=== PATIENT | female | born 1950 | race Caucasian/White ===

== ENCOUNTER → 2016-10-21 | Outpatient (CLI) | payer OTHER ==
[~2016-10-21] MED LIST: GLUCOPHAGE500 MG; ZIAC 10/6.25 MG10 MG
--- NOTE | ~2016-10-21 | S ---
[facility] [place] [address] SURGICAL PATH RPT PROCEDURE Name: JIMMIE CASTILLO Lakisha Room #: REG [facility].#: [id number] Admission: 10/21/16 Date of : 46 Discharge: Report #: [id number] Path Case #: [id number] PATHOLOGY REPORT COLLECTION DATE: 10/21/2016 RECEIVED DATE: 10/21/2016 SUBMITTING PHYS: Dr. Darshan Madden OTHER PHYS: Dr. Theodore Montoya SPECIMEN(S) RECEIVED: A.Right breast 300, 8 cm B.Right breast 300, 3 cm * * * * * * * * * * * * FINAL DIAGNOSIS: A. Breast, right breast 3:00, 8.0 cm, needle core biopsy: - INVASIVE MODERATELY DIFFERENTIATED DUCTAL ADENOCARCINOMA, MAYRA GRADE II, MEASURING 1.0 CM IN GREATEST DIMENSION IN A SINGLE CORE IN CONTIGUOUS LENGTH. B. Breast, right breast 3:00, 3.0 cm, needle core biopsy: - INVASIVE MODERATELY DIFFERENTIATED DUCTAL ADENOCARCINOMA, MAYRA GRADE II, MEASURING 5.0 MM IN CONTIGUOUS LENGTH IN A SINGLE CORE. - FOCAL DUCTAL CARCINOMA IN-SITU OF CRIBRIFORM TYPE AND INTERMEDIATE NUCLEAR GRADE PRESENT ADJACENT TO THE INVASIVE DUCTAL CARCINOMA. COMMENT: Specimen type: needle core biopsy; Tumor site: two sites, right breast 3:00, 8.0 cm, and right breast 3:00, 3.0 cm; Histologic type: invasive ductal carcinoma; Histologic grade: Mayra grade II; Tubules, nuclei and mitoses: 3, 2, and 1, respectively; LVSI: not identified; Microcalcifications: not identified; Markers: ER, UT, Ki-67, and HER-2/arline; Block: A1. Co-review: Dr. Trudy Lopes. Findings are telephoned to Ms Reveles, at our breast center at approximately 10:50 a.m., on 10/22/16. (IUV:csd; d/t: 10/22/2016) PATHOLOGIST: Ariane King M.D. REPORT ELECTRONICALLY SIGNED BY: Ariane King M.D. DATE/TIME: 10/22/2016 15:20 * * * * * * * * * * * * [address] [address] SURGICAL PATH RPT PROCEDURE Name: JIMMIE CASTILLO Room #: REG [facility]#: [id number] Admission: 10/21/16 Date of : 46 Discharge: Report #: [id number] Path Case #: [id number] GROSS PATHOLOGY: A. Received in formalin labeled "Jimmie Castillo, right breast 3:00 8 cm," are multiple needle cores of yellow-payne fibrofatty tissue measuring 2.5 x 1.8 x 0.5 cm in aggregate dimensions. The tissue is submitted in its entirety in cassette A1. The cold ischemic time is 5 minutes. The total formalin fixation time is 13 hours and 26 minutes. B. Received in formalin labeled "Jimmie Castillo, right breast 3:00 3 cm," are multiple needle cores of yellow-payne fibrofatty tissue measuring 1.8 x 1.2 x 0.4 cm in aggregate dimensions. The tissue is submitted in its entirety in cassette B1. The cold ischemic time is 5 minutes. The total formalin fixation time is 13 hours and 21 minutes. (CAA; 10/21/2016) CLINICAL HISTORY: Right breast mass 2 INITIAL CPT CODE(S): A; 12958, 30488(4) B; 46339 Professional services performed by [facility] at [address], [place] [address] Technical services performed by [facility] at [address] [place] [address], [address], [place] [address]. PROCEDURE REPORT (Order Date: 10/22/2016 00:00) INTERPRETATION: Special studies report received from [facility], [address] [place] [address], [address], [place], [address], on case [id number], labeled with their number [id number], dated 10/23/2016. Predictive/Prognostic Marker Analysis Specimen 1: Rt Breast Specimen ID#: [id number] B2 ER (Estrogen Receptor): Present/Positive Percent: 96.5% Intensity: Strong Analysis Type: Computer Assisted UT (Progesterone Receptor): Present/Positive Percent: 16.4% Intensity: Moderate Analysis Type: Computer Assisted HER2: Not Over-Expressed Score: 1+ Analysis Type: Computer Assisted KI67: Low Proliferation [address] [address] SURGICAL PATH RPT PROCEDURE Name: JIMMIE CASTILLO Room #: ARABELLA Daniels#: [id number] Admission: 10/21/16 Date of : 46 Discharge: Report #: [id number] Path Case #: [id number] Percent: 16.8% Analysis Type: Computer Assisted Fixation Information Type of Fixative: 10% Neutral Buffered Formalin Time to Fixation: Immediate Duration of Fixation: 27 hours 15 minutes at [facility] Validation Methodology The HER2 Receptor protein expression is analyzed using the [place] HER2 rabbit monoclonal antibody (clone [id number]). This assay is used for diagnostic determination of the HER2 protein over-expression in paraffin embedded, formalin fixed breast cancer tissue on the [place] Benchmark. The specimen is processed using a polymer detection system. The membrane staining of the tumor is determined either by manual score or image analysis. This antibody is intended for in vitro diagnostic use. The score is reported as per package insert; 0, 1+, 2+, and 3+. This test is used for clinical purposes. A rabbit monoclonal antibody (clone SP1) that recognized the Estrogen Receptor is used to perform immunohistochemistry on routinely fixed (formalin) paraffin embedded tissue on the [place] Benchmark. The specimen is processed using a polymer detection system. The percentage of stained tumor nuclei is determined either manually or by image analysis. This test is intended for in vitro diagnostic use. This test is used for clinical purposes. A rabbit monoclonal antibody (clone 1E2) that recognized the Progesterone Receptor is used to perform immunohistochemistry on routinely fixed (formalin) paraffin embedded tissue on the [place] Benchmark. The specimen is processed using a polymer detection system. The percentage of stained tumor nuclei is determined either manually or by image analysis. This test is intended for in vitro diagnostic use. This test is used for clinical purposes. A rabbit monoclonal antibody (clone 30-9) that recognized Ki67 is used to perform immunohistochemistry on routinely fixed (formalin) paraffin embedded tissue on the [place] Benchmark. The specimen is processed using a polymer detection system. The percentage of stained tumor nuclei is determined either manually or by image analysis. This test is intended for in vitro diagnostic use. This test is used for clinical purposes. Intended Use (when used as Prognostic/Predictive Markers): This antibody is intended for in vitro diagnostic (IVD) use. Estrogen Receptor (ER) (SP1) is a rabbit monoclonal antibody (IgG) that is intended for the qualitative detection of estrogen receptor (ER) antigen in sections of formalin-fixed, paraffin-embedded tissue. ER is a rabbit monoclonal antibody that recognizes human estrogen receptor alpha. This antibody is intended for in vitro diagnostic (IVD) use. Progesterone Receptor (UT) (1E2) is a rabbit monoclonal antibody [facility] [address] [place] [address] SURGICAL PATH RPT PROCEDURE Name: JIMMIE CASTILLO [id number] Admission: 10/21/16 Date of : 46 Discharge: Report #: [id number] Path Case #: [id number] (IgG) that is intended for the qualitative detection of progesterone receptor (UT) antigen in sections of formalin fixed, paraffin embedded tissue. UT is a rabbit monoclonal antibody that recognizes the A and B forms of the human progesterone receptor. This antibody is intended for in vitro diagnostic (IVD) use. HER2 (4B5) is a rabbit monoclonal antibody intended for the semi-quantitative detection of HER2 antigen in sections of formalin-fixed, paraffin embedded normal and neoplastic tissue. The HER2 protein is expressed as a level detectable by immunohistochemistry in up to 20 percent of adenocarcinomas from various sites. This antibody is intended for in vitro diagnostic (IVD) use. Ki-67 (30-9) is a rabbit monoclonal antibody (IgG) directed against C-terminal portion of Ki-67 antigen. Staining for Ki-67 can be used to aid in assessing the proliferative activity of normal and neoplastic tissue. Ki-67 is a nuclear protein expressed in proliferating cells. During the cell cycle, the Ki-67 antigen is present in the G1, S, G2 and M phase but is absent in the G0 (quiescent phase). Disclaimer [facility] is a business unit of [employer] a wholly-owned subsidiary of [employer]. Technical component performed by [facility] at [address] [place] [address] [address] [address], Leander Phillip MD Professional component performed by [facility] at [address] [place] [address] [address] [address], . Any image(s) that accompany this report is/are a retail sales representative image(s) only and should not be used to render a diagnosis. HER2 testing at [facility], [employer] is performed in compliance with the 2013 updated ASCO/CAP Clinical Practice Guidelines and Recommendations for HER2 testing in Breast Cancer. If the result is EQUIVOCAL (2+), it must be confirmed by an alternative assay such as FISH or Dual JOANIE. REF: Jeri CEDILLO, et al. Recommendations for human epidermal growth factor receptor 2 testing in breast cancer: [place] Society of Clinical Oncology/College of Dominican pathologists Clinical Practice Guideline Update. J Clin Oncol. 2013 Nov ;31(31):4431-0539. HER2 and ER/UT ASCO/CAP guidelines require fixation in neutral buffered formalin for a minimum of 6 and a maximum of 72 hours. Fixation times less than 6 hours may not adequately preserve cell proteins. Fixation times longer than 72 hours may cause excess cross-linking of proteins reducing the antigen available for staining. Either scenario can cause reduced staining; hence false negative results are possible and should be considered for these situations if the HER2 IHC score is less than 3+ or ER or UT is negative (no staining or <1% positive). It is recommended that [facility] [address] [place] [address] SURGICAL PATH RPT PROCEDURE Name: JIMMIE CASTILLO Room #: REG [facility] Daniels#: [id number] Admission: 10/21/16 Date of : 46 Discharge: Report #: [id number] Path Case #: [id number] specimens fixed longer than 72 hours with HER2 IHC scores less than 3+ be confirmed by HER2 FISH or Dual JOANIE. The time from biopsy/excision to fixation in formalin (cold ischemic time) must be less than 1 hour. Time to fixation (cold ischemic time) greater than 1 hour should be interpreted with caution. HER2 testing, mainly HER2 by FISH, is particularly vulnerable since excessive cold ischemic time results in preferential loss of HER2 probe signals that may lead to false negative results. The immunohistochemistry tests performed at [facility] were validated on tissue fixed in 10% neutral buffered formalin. The performance characteristics of the tests performed on tissue processed in other fixatives is not known. SCORE STAINING PATTERN IN TUMOR CELLS INTERPRETATION RESULTS 0 No staining observed or incomplete, faint membrane staining in less than 10% of Negative tumor cells. 1+ Incomplete, faint membrane staining in greater than10% of tumor cells Negative 2+ Incomplete and/or weak/moderate circumferential membrane staining in Equivocal* Greater 10% of the invasive tumor cells or complete, circumferential, intense *Must be confirmed by alternative assay staining in less than10% of invasive tumor cells. (IHC/FISH/Dual JOANIE) 3+ Intense, complete membrane staining in >10% of tumor cells. Positive A complete copy of the report is on file. Professional services performed under supervision of [employer] at [id number] [place] [address]. Technical services performed by [facility] at [address] [address] COMMENT: PATHOLOGIST: Ariane King M.D. REPORT ELECTRONICALLY SIGNED BY: Ariane King M.D. DATE/TIME: 10/24/2016 16:17 [facility] [address] [place] [address] PHONE: [phone] DIRECTOR: Wes Crowell M.D. * * * END OF REPORT * * *
== END | disposition home or self-care (01) ==
LOC: ULTRA 09:11
DX: C50.911 Malignant neoplasm of unspecified site of right female breast (principal)

== ENCOUNTER 2018-02-03 05:40 | Inpatient (IN) | payer OTHER ==
[~2018-02-03] VITALS: Ht 162.6 cm; Wt 91.6 kg
--- NOTE | ~2018-02-03 | O ---
[facility] [place] [address] OPERATIVE REPORT Name: JIMMIE CASTILLO Room #: 150-3 [facility] [place] .R.#: [id number] Admission: 02/03/18 Attend Phys: Dot Bruno MD, Discharge: Date of : 46 Report #: [id number] THIS REPORT FOR: //name// CC: Dot Montoya DATE OF SERVICE: 02/03/2018 PREOPERATIVE DIAGNOSES: 1. Hypertension. 2. Diabetes mellitus. 3. Obstructive sleep apnea. 4. Lumbago. 5. Chronic bilateral lower extremity joint pain with arthralgias. 6. Chronic fatigue. 7. Morbid obesity with a BMI of 35.6. POSTOPERATIVE DIAGNOSES: 1. Hypertension. 2. Diabetes mellitus. 3. Obstructive sleep apnea. 4. Lumbago. 5. Chronic bilateral lower extremity joint pain with arthralgias. 6. Chronic fatigue. 7. Morbid obesity with a BMI of 35.6. 8. Prepyloric submucosal polyp on the lesser-curvature side of the gastric antrum. PROCEDURES PERFORMED: 1. Laparoscopic sleeve gastrectomy. 2. A thorough esophagogastroduodenoscopy (EGD). SURGEON: Dot Bruno M.D. GIS DEVELOPER: Wilmer Matthews M.D. ANESTHESIA: General endotracheal anesthesia. ESTIMATED BLOOD LOSS: Minimal (less than 5 mL). COMPLICATIONS: None appreciated. SPECIMENS: Gastric sleeve resection specimen to pathology. INDICATIONS: The patient is a 67-year-old female who is obese and has multiple medical problems as delineated above. The patient has been seen via a [facility] [address] [place] [address] OPERATIVE REPORT Name: JIMMIE CASTILLO Room #: 150-3 ADM IN .R.#: [id number] Admission: 02/03/18 Attend Phys: Dot Bruno MD, Discharge: Date of : 46 Report #: [id number] thorough multimodal team including her primary care physician, parole officer and a psychologist who have all cleared her for bariatric surgery as well as indicating that it is medically necessary for long-term weight loss and assistance with resolution of her comorbid conditions. The patient has followed with me for several months carrying out an intensive physician-directed diet and exercise plan with no significant weight loss thus far. As such, indication was for the above-mentioned procedures today. DESCRIPTION OF PROCEDURE: After explaining the risks, benefits and alternatives of the procedure with the patient in detail in the preoperative holding area and obtaining written consent, the patient was brought to the operating room and placed supine on the operating room table. After conducting a thorough timeout procedure verifying correct patient and procedure, the patient was given general endotracheal anesthesia. Once adequate anesthesia was obtained, her SCDs were hooked up to pneumatic compression device. She was given a preoperative dose of antibiotics in line with the SCIP protocol. The patient's abdomen was prepped and draped in standard surgical sterile fashion after positioning her in the low lithotomy position with her legs in the Yellofin stirrups. 5 mL of 0.5% Marcaine with epinephrine were used to anesthetize the skin in the right upper quadrant midclavicular line, 5-cm cephalad to the umbilicus and 5 cm to the patient's right. A #15 bladed scalpel was used to create a 1.5-cm transverse skin incision at this location. A 15-mm Visiport was placed over 0 degree 5-mm laparoscope and was introduced through this incision site. Once intra-abdominal placement was verified visually, the obturator for the trocar and laparoscope were both removed and the abdomen was insufflated to 15 mmHg using carbon dioxide gas. The laparoscope was changed to a 5-mm 30-degree laparoscope, which was reintroduced through this trocar. The entire abdomen was evaluated to ensure no injury upon entry. There were adhesions in the lower pelvis; however, this was a confluent sheet of adhesions and as such low risk for bowel obstruction and these adhesions were therefore left alone. I was now able to place three additional 5 mm trocars. The first was placed 2 cm cephalad to the umbilicus and 2 cm to the patient's left, and an additional 5-mm port was placed 5 cm lateral to that, and a final 5-mm port was placed in the extreme left lateral flank. All three additional ports were placed under direct vision after anesthetizing the skin at each location with 5 mL of 0.5% Marcaine with epinephrine. I created small skin nicks using #15 bladed scalpel. Laparoscope was removed, changed to the 5-mm port just to the left of the patient's umbilicus and she was placed in steep reverse Trendelenburg position. I now placed a Eulogio liver retractor in subxiphoid location by anesthetizing the skin at that location with 5 mL of 0.5% Marcaine with epinephrine. I created a small skin johann using #15 bladed scalpel. The Eulogio retractor was placed through this defect where it was maneuvered up under the left lobe of the liver and it was held up against the posterior aspect of the anterior abdominal wall. This was fixed into position using the iron international flight attendant device to stabilize it. We now had complete access to the stomach and hiatal regions and again saw no evidence of a hiatal hernia. I now started my dissection after identifying our [facility] [place] [address] OPERATIVE REPORT Name: JIMMIE CASTILLO Room #: 150-3 ADM IN M.R.#: [id number] Admission: 02/03/18 Attend Phys: Dot Bruno MD, Discharge: Date of : 46 Report #: [id number] landmarks. The vein of Arechiga was identified overlying the pylorus. I measured 4 cm proximal to this location and began taking down the short gastric arteries from this location all the way up the greater curvature of the stomach using Harmonic scalpel for hemostasis. Once I had arrived upon the left ellen, I dissected anteriorly up the left ellen and reflected the stomach anteriorly and took down all posterior gastric attachments as well, ensuring that I was well away from both the posterior aspect of the stomach and the anterior aspect of the pancreas, so as to prevent injury from thermal spread. Now that we completely mobilized the stomach, I broke scrub and utilized the Microstaqn upper endoscope to intubate the oropharynx. This was traversed down into the gastric lumen where a retroflexion view again showed no evidence of a hiatal hernia. The scope was advanced to second portion of duodenum where slow careful withdrawal of the scope showed no evidence of duodenitis, gastritis, esophagitis or ulcerations. There did appear to be a submucosal mass lesion along the lesser curvature of the stomach in the prepyloric fashion. This did not appear obstructive and again was on the prepyloric aspect of the antrum. Therefore, it was left alone. The scope was placed with its tip at the level of pylorus where it was taped into position. The stomach was fully desufflated. After sterilely scrubbing and entering the operative field once again, we started the sleeve gastrectomy portion of the procedure. The [employer] 60-mm stapler with a black load utilizing Smith's Wilma-Strip buttressing material placed over it was entered into the abdomen through the 15-mm trocar. This first firing started at the location 4 cm proximal to the pylorus and was fired right along, but not extremely tight to the scope, so as not to cause stricturing, especially at the incisura. An additional firing of another black load again utilizing Smith's Wilma-Strip buttressing material was carried out following the scope as a bougie. Five additional firings of green loads all utilizing Smith's Wilma-Strip buttressing material was carried out following the scope as a 34-Chinese bougie until I arrived upon the left ellen and had completely transected the specimen. The resection specimen was placed in the right upper quadrant and the staple line was evaluated. We had complete hemostasis with no bleeding whatsoever. I now utilized 18 mL of Tisseel on the GeneAssessspray device to coat the entirety of the staple line with fibrin glue. As this was drying, the resection specimen was grasped and removed out of the abdomen under direct vision through the 15-mm incision. I then closed the 15-mm fascial incision using 0 PDS suture on the Basim-Tressa suture passer device under direct vision and tied this down under direct vision to ensure I did not catch a loop of bowel or omentum in the suture repair. Once the Tisseel was dry, normal saline was instilled in the upper abdomen and the EGD scope was reactivated and used to slowly insufflate the stomach and upon slow withdrawal, we were able to evaluate the staple line internally for hemostasis and saw no bleeding whatsoever. This also allowed gentle insufflation, which held under the normal saline in the abdomen, performed a leak test and we saw no bubbling thereby signifying a negative leak test. The EGD scope was used to desufflate the stomach fully, removed via the oropharynx, passed off the field and I proceeded to suction the irrigant out of the abdomen, which ran clear throughout. We had excellent orientation of the [facility] [address] [place] [address] OPERATIVE REPORT Name: JIMIME CASTILLO Lakisha Room #: 150-3 [facility] IN .R.#: [id number] Admission: 02/03/18 Attend Phys: Dot Bruno MD, Discharge: Date of : 46 Report #: [id number] sleeve with no twisting and no bleeding. The Eulogio retractor was now removed under direct vision. The liver was healthy and uninjured other than the fact that it does show cirrhotic changes. The abdomen was fully desufflated. All remaining trocars were removed under direct vision. A 4-0 Monocryl was used in a standard subcuticular fashion for all skin incisions and Dermabond glue was applied to all skin wounds. The corner of the resection specimen had been removed was trimmed away and normal saline was passively instilled into the resection specimen yielding 1650 mL in the resection specimen itself. At the end of the procedure, all instrument, needle and sponge counts were correct. The patient tolerated the procedure without incident, was awakened in the operating room and transitioned to the recovery room in stable condition with no apparent complications. <ELECTRONICALLY SIGNED> By: Dot Bruno MD, FACS 02/03/18 1510 [id number] 1503 Dot Bruno MD, FACS /nt
--- NOTE | ~2018-02-03 | PATH ---
[facility] [place] [address] PATHOLOGY RPT PROCEDURE Name: JIMMIE CASTILLO A Room #: 418-P [facility] IN .R.#: [id number] Admission: 02/03/18 Date of : 46 Discharge: 02/04/18 Report #: [id number] Path Case #: [id number] [facility] Accession Number: [id number] . 01 Material submitted: . LAP SLEEVE GASTRECTOPY . 01 Clinical history: . Morbid obesity . 02 Diagnosis: Stomach, laparoscopic sleeve gastrectomy: - No diagnostic abnormalities, history of morbid obesity. (IUV:db; 02/05/2018) LBQ/02/05/2018 . 02 Electronically signed: . Ariane King MD, Pathologist NPI- [id number] . 01 Gross description: . Received in formalin labeled "Castillo, Jimmie, lap sleeve gastrectomy," is a partial gastrectomy specimen measuring 26.1 x 7.4 x 4.3 cm in greatest dimensions. The serosal surface is smooth to shaggy and pale jolley to dusky purple-payne in appearance, displaying a linear staple line along one edge. The specimen is opened along the staple line to reveal a pale jolley to dusky purple-jolley mucosal surface displaying largely flattened rugal folds. A dark jolley-brown polyp is noted on the mucosal surface, measuring 0.4 cm in maximum dimension, as well as a light jolley possible polyp measuring 0.2 cm in maximum dimension. The specimen is submitted representatively in cassette A1, to include the aforementioned polyp and possible polyp. (DAC; 02/04/2018) XDC/XDC . 02 Pathologist provided ICD-10: E66.01 . 02 CPT . 711137 Performed at: [address], [place] [id number] MD Ravi Decker MD Phone: [phone] Performed at: [address] [id number] MD Ariane King MD Phone: [phone]
[~2018-02-03 05:40] MED LIST changes: +ARIMIDEX1 MG PO; +ASPIR 8181 MG PO; +BIOTIN5000 MCG PO; +GLUCOPHAGE1000 MG PO; +HYDROCHLOROTHIA25 M2 PO; +PREVAGEN PO; +PRINIVIL40 MG PO; +ZIAC 10-6.25 M1 EACH PO
[2018-02-03 10:01] VITALS: BP 129/56
[2018-02-03 16:10] VITALS: BP 164/82
[2018-02-03 16:40] VITALS: BP 171/88
[2018-02-03 17:10] VITALS: BP 152/71
[2018-02-03 18:10] VITALS: BP 162/90
[2018-02-03 19:40] VITALS: BP 159/70
[2018-02-04 00:30] VITALS: BP 122/63
[2018-02-04 04:10] VITALS: BP 150/71
[2018-02-04 06:00] LABS: HEMATOCRIT 41.2 % (37.0-47.0); HEMOGLOBIN 14.5 gm/dL (12.0-15.0); MCH 32.5 pg (26.0-34.0); MCHC 35.3 g/dL (28.0-37.0); MCV 92.1 fL (80.0-100.0); RBC 4.47 mil/uL (4.20-5.00); WBC 8.3 thou/uL (4.0-11.0)
[2018-02-04 06:14] LABS: CALCIUM 10.9 mg/dL (8.5-10.1); CREATININE 1.6 mg/dL (0.6-1.0); POTASSIUM 3.7 mmol/L (3.5-5.1)
[2018-02-04 07:15] VITALS: BP 138/65
[2018-02-04] MEDS ORDERED: HYDROCODONE-ACE15 ML PO (09:02)
[2018-02-04 11:01] VITALS: BP 138/65
[2018-02-04 11:03] VITALS: BP 138/65
== END 2018-02-04 12:27 | disposition home or self-care (01) | DRG 621 ==
LOC: TBA 05:40 → 4E 05:40 → PRE 07:09 → 4E 16:27
PROVIDERS: Surgery
DX: E66.01 Morbid (severe) obesity due to excess calories (principal); I10 Essential (primary) hypertension; E11.9 Type 2 diabetes mellitus without complications; G47.33 Obstructive sleep apnea (adult) (pediatric); M54.5 Low back pain; M79.605 Pain in left leg; M79.604 Pain in right leg; Z87.891 Personal history of nicotine dependence; Z90.49 Acquired absence of other specified parts of digestive tract; Z90.710 Acquired absence of both cervix and uterus; Z85.3 Personal history of malignant neoplasm of breast; Z92.3 Personal history of irradiation; Z98.41 Cataract extraction status, right eye; Z68.34 Body mass index [BMI] 34.0-34.9, adult; Z79.899 Other long term (current) drug therapy
CPT/HCPCS: 10783; 50010; 50101; 50739; 51436; 51437; 52182; 52265; 54118; 56719; 62110; 62900; 70005

== ENCOUNTER → 2020-08-28 | Outpatient (CLI) | payer OTHER ==
[~2020-08-28] MED LIST changes: +HYDROCODONE-ACE15 ML PO
== END ==
LOC: RAD 08:38
PROVIDERS: ATTEND Surgery
DX: R63.5 Abnormal weight gain (principal); Z98.890 Other specified postprocedural states